=== PATIENT | male | born 1960 | race African-American/Black ===

== ENCOUNTER 2022-07-15 11:08 | Emergency (ER) | payer OTHER, SELFPAY ==
[2022-07-15] MEDS ORDERED: Ketorolac Tromethamine 30 MG/ML VIAL ONE (11:47)
== END 2022-07-15 12:20 | disposition home or self-care (01) ==
LOC: ERS 11:08
DX: M25.561 Pain in right knee (principal); I10 Essential (primary) hypertension; W01.0XXA Fall on same level from slipping, tripping and stumbling without subsequent striking against object, initial encounter
CPT/HCPCS: 96372; J1885